=== PATIENT | male | born 1945 | race Caucasian/White ===

== ENCOUNTER → 2017-02-20 10:18 | Outpatient (CLI) | payer MEDICARE, BC, SELFPAY ==
[2017-02-20 12:19] LABS: Alanine Aminotransferase 63 U/L (12-78); Albumin Level 4.4 gm/dL (3.4-5.0); Albumin/Globulin Ratio 1.7 (1.1-1.8); Alkaline Phosphatase 59 U/L (46-116); Anion Gap 9.3 mEq/L (5-15); Aspartate Amino Transferase 32 U/L (15-37); Blood Urea Nitrogen 19 mg/dL (7-18); Calcium 9.4 mg/dL (8.5-10.1); Carbon Dioxide 31 mmol/L (21.0-32.0); Chloride 107 mmol/L (98-107); Chol/HDL Ratio 3.7 (1-3.5); Cholesterol 145 mg/dL (140-200); Creatinine,Serum 1.03 mg/dL (0.70-1.30); Estimated Glomerular Filt Rate 71 ml/min (>60); GFR (African American) 86 ML/MIN (>60); Globulin 2.6 gm/dl (1.3-3.2); Glucose 80 mg/dL (74-106); HDL Cholesterol 39 mg/dL (27-67); LDL Cholesterol 83 mg/dL (0-130); Potassium 4.3 mmoL/L (3.5-5.1); Sodium 143 mmol/L (136-145); Triglycerides 115 mg/dL (30-200); VLDL Cholesterol 23 mg/dL (0-40)
== END ==
PROVIDERS: PCP Internal Medicine Adolescent Medicine; Visit Provider Internal Medicine Adolescent Medicine
DX: M54.41 Lumbago with sciatica, right side (principal); E78.5 Hyperlipidemia, unspecified
CPT/HCPCS: 36415; 80053; 80061

== ENCOUNTER → 2017-02-25 08:16 | Outpatient (CLI) | payer MEDICARE, BC, SELFPAY ==
--- NOTE | 2017-02-25 08:21 | MR_ITS ---
MR lumbar spine wo/w con HISTORY: Low back pain, right-sided back pain and right leg burning ITS.REASON: ACUTE RIGHT SIDED LOW BACK PAIN, W/SCIATICA ORDERING PHYSICIAN: Han Calloway MD PATIENT AGE: 71 years COMPARISON: None TECHNIQUE: Standard multiplanar multiecho sequences are performed without and with gadolinium enhancement . FINDINGS: Transitional segment is present at the lumbosacral junction and is labeled as L5. This was determined based on prior chest and abdomen films. Patient has small 12th ribs. The spinal cord ends at the T12-L1 level T10-T11: Degenerative disc disease. There is moderate facet and ligamentum flavum hypertrophy with bilateral lateral recess and foraminal narrowing. There is canal narrowing at 10 mm. T11-T12: Unremarkable. T12-L1: Degenerative disc disease with bulging disc with mild bilateral foraminal narrowing. The bulging disc does abut the anterior aspect of the cauda equina. L1-L2: Facet and ligamentum hypertrophy with moderate bilateral lateral recess and foraminal narrowing with some transverse narrowing of the canal. L2-L3: Bulging disc with small left paracentral disc protrusion along with facet and ligamentum hypertrophy. There is moderate bilateral foraminal narrowing and lateral recess narrowing. The protruding disc does abut the anterior aspect of the L3 nerve root. L3-L4: Severe facet and ligamentum flavum hypertrophic changes. There is a moderate sized bulging disc along with a small right paracentral disc herniation with superior extrusion of the disc impinging upon the anterior medial aspect of the exiting L3 nerve root. There is severe transverse canal stenosis of 5 mm along with severe bilateral lateral recess and foraminal narrowing. L4-L5: Mild anterolisthesis of L4 approximately 5 mm with bulging disc along with facet and ligamentum flavum hypertrophy with severe bilateral foraminal narrowing with transverse narrowing of the canal is 12 mm. L5-S1: Transitional segment. Unremarkable. No enhancing lesions are evident. There is a lipoma at L2 centrally measuring 1 cm. Multilevel atraumatic 5 are present most prominent at T12-L1. IMPRESSION: 1. Lumbar spondylosis with bulging disc, degenerative disc disease, facet and ligamentum hypertrophy, canal stenosis, and a herniated disc as detailed above. Please see above for detailed description at each level. 2. There is multilevel canal stenosis along with lateral recess and foraminal narrowing. A right paracentral disc herniation is present at L3-L4 with superior extrusion of the disc
== END ==
PROVIDERS: Family Provider Internal Medicine Adolescent Medicine; PCP Internal Medicine Adolescent Medicine; Visit Provider Internal Medicine Adolescent Medicine
DX: M54.31 Sciatica, right side (principal)
CPT/HCPCS: 72158; 76376; A9576

== ENCOUNTER → 2017-03-25 12:28 | Outpatient (CLI) | payer MEDICARE, BC, SELFPAY ==
[2017-03-25 13:05] LABS: Basophils % 0.3 % (0.1-2.0); Eosinophils # 0.1 K/mm3 (0.0-0.4); Eosinophils % 1.6 % (0.1-12.0); Hematocrit 46.9 % (42.0-52.0); Hemoglobin 15.9 g/dL (14.1-18.0); Lymphocytes % 27.5 K/mm3 (10-50); Mean Corpuscular Hemoglobin 28.6 pg (27.0-31.2); Mean Corpuscular Volume 84.3 fl (80-94); Mean Platelet Volume 7.9 fl (7.4-10.4); Monocytes # 0.4 K/mm3 (0.1-1.0); Monocytes % 6.2 % (1.7-9.3); Neutrophils # 4.6 K/mm3 (1.8-7.8); Neutrophils % 64.3 % (37.0-80.0); Platelet Count 180 K/mm3 (142-424); Red Blood Count 5.57 M/mm3 (4.60-6.20); Red Cell Distribution Width 13.1 % (11.5-17.5); White Blood Count 7.1 K/mm3 (4.8-10.8)
[2017-03-25 14:08] LABS: Alanine Aminotransferase 59 U/L (12-78); Albumin Level 3.9 gm/dL (3.4-5.0); Albumin/Globulin Ratio 1.3 (1.1-1.8); Alkaline Phosphatase 66 U/L (46-116); Amylase 57 U/L (25-125); Anion Gap 11.3 mEq/L (5-15); Aspartate Amino Transferase 22 U/L (15-37); Bilirubin,Total 1.1 mg/dL (0.2-1.0); Blood Urea Nitrogen 15 mg/dL (7-18); Calcium 8.8 mg/dL (8.5-10.1); Carbon Dioxide 30 mmol/L (21.0-32.0); Chloride 105 mmol/L (98-107); Chol/HDL Ratio 3.4 (1-3.5); Cholesterol 132 mg/dL (140-200); Creatinine,Serum 1.07 mg/dL (0.70-1.30); Estimated Glomerular Filt Rate 68 ml/min (>60); GFR (African American) 83 ML/MIN (>60); Glucose 103 mg/dL (74-106); HDL Cholesterol 39 mg/dL (27-67); LDL Cholesterol 74 mg/dL (0-130); Lipase 177 u/L (73-393); Potassium 4.3 mmoL/L (3.5-5.1); Sodium 142 mmol/L (136-145); Total Protein,Serum 6.9 gm/dL (6.4-8.2); Triglycerides 94 mg/dL (30-200); VLDL Cholesterol 19 mg/dL (0-40)
== END ==
PROVIDERS: PCP Internal Medicine Adolescent Medicine; Visit Provider Internal Medicine Adolescent Medicine
DX: R10.11 Right upper quadrant pain (principal); R10.13 Epigastric pain
CPT/HCPCS: 36415; 80053; 80061; 82150; 83690; 85025

== ENCOUNTER → 2017-04-03 07:39 | Outpatient (CLI) | payer MEDICARE, BC, SELFPAY ==
--- NOTE | 2017-04-03 08:00 | US_ITS ---
US abdomen limited: HISTORY: ITS.REASON: RUQ PAIN ORDERING PHYSICIAN: Han Calloway MD PATIENT AGE: 71 years COMPARISON: None FINDINGS: PANCREAS: Unremarkable. No obvious mass or abnormal fluid collection. No ductal dilatation LIVER: No focal liver lesions demonstrated. Homogeneous echogenicity. No intrahepatic biliary ductal dilatation evident RIGHT KIDNEY: Unremarkable. Normal size and echogenicity. No hydronephrosis GALLBLADDER: No stones are apparent. On the CT scan however performed on the same day there is a calcific density in the neck of the gallbladder suggesting a small gallstone. This area may be difficult to image by ultrasound. No gallbladder wall thickening, pericholecystic fluid, or biliary dilatation. The gallbladder measures approximately 9 x 2 cm. Common duct is normal at 4 mm. IMPRESSION: 1. Unremarkable right upper quadrant ultrasound. 2. There is a stone suspected in the region of the cystic duct on the CT scan. This is not confirmed on the gallbladder ultrasound and may be due to technical issues in imaging in this area by ultrasound
--- NOTE | 2017-04-03 09:10 | HMH.ITSHM ---
CHOLECALCIFEROL VIT D3 ZOLPIDEN TARTRATE ATENOLOL ATORVASTATIN ASA SILENDAFIL CITRATE
--- NOTE | 2017-04-03 10:45 | CT_ITS ---
CT abdomen pelvis wo/w con CLINICAL INDICATION: Right upper quadrant pain ITS.REASON: ABD PAIN ORDERING PHYSICIAN: Han Calloway MD PATIENT AGE: 71 years COMPARISON: None TECHNIQUE: Axial images obtained without and with contrast with sagittal and coronal reformats. PROCEDURE: Oral Contrast: None IV Contrast: 75 mL's of Isovue-370. FINDINGS: There are minimal atelectatic changes in the right lung base adjacent prominent osteophytes. Coronary artery calcifications are present There is mild diffuse fatty liver. No focal liver lesion is evident. A gallstone or stones are noted in the region of the neck of the gallbladder. No obvious pericholecystic fluid or biliary dilatation. The spleen, pancreas, and adrenal glands are unremarkable. There is a small hiatal hernia. There is a small diverticulum projecting along the medial portion of the descending duodenum. There are nonobstructing bilateral renal calculi measuring up to 5 mm in the upper pole on the right 7 mm in the mid polar region on the left. Small exophytic density projects off the lower pole of left kidney at 13 mm consistent with small cyst. No intestinal obstruction or free air. Unremarkable appendix. There is diverticulosis of the descending and sigmoid colon. No evidence of diverticulitis. No focal inflammatory changes apparent Spondylosis of the lumbar spine. No acute bony anomalies. IMPRESSION: 1. Cholelithiasis. 2. Colonic diverticulosis. No evidence of diverticulitis. 3. Bilateral nonobstructing renal calculi
== END ==
PROVIDERS: Family Provider Internal Medicine Adolescent Medicine; PCP Internal Medicine Adolescent Medicine; Visit Provider Internal Medicine Adolescent Medicine
DX: R10.11 Right upper quadrant pain (principal)
CPT/HCPCS: 74170; 74178; 76705; Q9967

== ENCOUNTER → 2018-01-06 12:50 | Outpatient (POV) | payer MEDICARE, BC, SELFPAY | DX: Z00.00 Encounter for general adult medical examination without abnormal findings (principal) ==

== ENCOUNTER → 2021-05-07 08:46 | Outpatient (CLI) | payer MEDICARE, BC, SELFPAY ==
--- NOTE | 2021-05-07 08:49 | US_ITS ---
FINAL REPORT CLINICAL HISTORY: LEFT LOWER QUADRANT ABD. PAIN FINDINGS: Sonographic images of the abdomen were obtained. The left lower quadrant at the area of pain shows no mass or fluid collection. The liver has increased echogenicity consistent with fatty infiltration. The gallbladder has an unremarkable appearance without evidence of gallstones. There is no evidence of biliary ductal dilatation. The common hepatic duct measures 3 mm, which is within normal limits. Limited images of the pancreas are unremarkable. The spleen size is normal. The right kidney measures 10.4 cm in length. The left kidney measures 11.1 cm in length. There is a 1.2 cm left renal cyst. There is no evidence of hydronephrosis. The aorta has an unremarkable appearance. Limited images of the inferior vena cava are unremarkable. IMPRESSION: Fatty infiltration of the liver. No mass or fluid collection is seen in the area of interest. Reviewed, Interpreted and Dictated by Jacobo Pinzon III, MD Transcribed by Sangeeta Dawson Authenticated by Jacobo Pinzon III, MD on 05/07/2021 11:28:48 AM [facility]
== END ==
PROVIDERS: Visit Provider Internal Medicine Adolescent Medicine
DX: R10.32 Left lower quadrant pain (principal); Z98.890 Other specified postprocedural states
CPT/HCPCS: 76700

== ENCOUNTER → 2021-05-21 07:46 | Outpatient (CLI) | payer MEDICARE, BC, SELFPAY ==
[2021-05-21 09:22] LABS: Blood Urea Nitrogen 19 mg/dl (9-20); Estimated Glomerular Filt Rate 65 ml/min (>60); GFR (African American) 79 ML/MIN (>60)
== END ==
PROVIDERS: Visit Provider Nurse Practitioner Family
DX: R10.31 Right lower quadrant pain (principal)
CPT/HCPCS: 36415; 82565; 84520

== ENCOUNTER → 2021-05-23 08:28 | Outpatient (CLI) | payer MEDICARE, BC, SELFPAY ==
--- NOTE | 2021-05-23 08:36 | CT_ITS ---
FINAL REPORT TECHNIQUE: After the administration of oral and intravenous contrast, axial images were obtained through the abdomen and pelvis by computed tomography. The study was performed with techniques to keep radiation dose as low as reasonably achievable, (ALARA). Individual dose reduction techniques using automated exposure control or adjustment of mA and/or kV according to the patient's size were employed. CLINICAL HISTORY: RIGHT LOWER QUADRANT PAIN. LEFT LOWER QUADRANT PAIN COMPARISON: April 03, 2017 FINDINGS: Abdomen: There is scarring in the medial right lung base. There is mild fatty infiltration of the liver. There are multiple gallstones in the dependent portion of the gallbladder. There is a small periampullary duodenal diverticulum. The spleen, pancreas, adrenals and kidneys appear unremarkable. The aorta is normal in caliber. There is no free fluid or adenopathy. Pelvis: The appendix is not identified. There is a moderate amount of stool in the distal colon and rectum. There are scattered diverticula throughout the descending and sigmoid colon. The urinary bladder is unremarkable. There is no free fluid or adenopathy. IMPRESSION: Fatty infiltration of the liver. Gallstones. Descending and sigmoid colon diverticulosis without evidence of diverticulitis. Reviewed, Interpreted and Dictated by Hamilton Keita MD Transcribed by Lance Theodore Authenticated by Hamilton Keita MD on 05/23/2021 10:30:30 AM [facility]
== END ==
PROVIDERS: Visit Provider Internal Medicine Adolescent Medicine
DX: R10.31 Right lower quadrant pain (principal)
CPT/HCPCS: 74177; Q9967

== ENCOUNTER 2021-06-09 10:25 | Emergency (ER) | payer MEDICARE, BC, SELFPAY ==
[2021-06-09 10:30] VITALS: BP 129/68; PULSE 69; RESP 18; TEMP 37; O2SAT 95; BMI 27.8
--- NOTE | 2021-06-09 11:12 | HMH.EDUTC ---
[facility] [place] Disposition Clinical Impression: Maxillary sinusitis, acute Qualifiers: Recurrence: non-recurrent Qualified Code(s): J01.00 - Acute maxillary sinusitis, unspecified Disposition: Home, Self-Care Condition on Discharge: Good Instructions: DI for Sinusitis Additional Instructions: Start antibiotic patient to take as ordered for a full length of time even if you feel better. Sinus infections do not get better overnight. It may take 2-3 days to notice much improvement so be sure to use conservative measures as discussed for symptoms. Flonase 1 spray each nostril daily to help with nasal congestion, sinus and ear pressure/information Increase fluids Humidifier/vaporizer as needed Tylenol and ibuprofen as needed for fever or pain. If symptoms do not improve or get worse return or be seen in the ER Follow-up with primary care this week Prescriptions: Fluticasone Propionate [Flonase 50mcg nasal spray 16gm] 1 spr NS DAILY 14 Days #9.9 ml Transmission Status: Pending to [facility] Azithromycin [Zithromax 250mg tab] 250 mg PO DIRECTED #6 tab [facility]: [facility] Referrals: Mackenzie Rider APRN [Primary Care Provider] - Time of Disposition: 11:19 Medical Decision Making - Vick Inquiry Pt receiving controlled substance: No Vital Signs: 06/09/21 10:30 Temperature 98.6 F Temperature Source Oral Pulse Rate [Right Brachial] 69 Respiratory Rate 18 Blood Pressure [Right Arm] 129/68 Blood Pressure Mean [Right Arm] 88 Blood Pressure Source [Right Arm] Automatic Cuff Blood Pressure Position [Right Arm] Sitting 02 Sat by Pulse Oximetry 95 Oxygen Delivery Method Room Air [facility] [place] HPI - General Chief complaint: Urgent Treatment Center Stated complaint: congestion Time Seen by Provider: 06/09/21 11:12 Mode of Arrival: Ambulatory Source of Information: Patient Limitations: No Limitations Description of Symptoms (Recalled from Triage Doc. by RN): PATIENT C/O COUGH AND CONGESTION X 2 DAYS HEENT Symptoms (Recalled from RN notes): Yes Resp Symptoms (Recalled from RN notes): Yes Skin Symptoms (Recalled from RN notes): No MS Symptoms (Recalled from RN notes): No Functional Status (Recalled from RN notes): WNL - History of Present Illness Provider Complaint: 76 yr old female presents for coughing, sore throat and congestion and seems to be getting worse instead of better - Related Data Home Medications Medication Instructions Recorded Confirmed atenolol 25 mg tablet 25 mg PO DAILY 09/28/17 06/09/21 atorvastatin 20 mg tablet 20 mg PO DAILY 09/28/17 06/09/21 Trazodone HCl 50 mg PO DAILY 06/09/21 06/09/21 hydroCHLOROthiazide [HCTZ 25mg 25 mg PO DAILY 06/09/21 06/09/21 tab] Previous Rx's Medication Instructions Recorded Azithromycin [Zithromax 250mg 250 mg PO DIRECTED #6 tab 06/09/21 tab] Fluticasone Propionate [Flonase 1 spr NS DAILY 14 Days #9.9 ml 06/09/21 50mcg nasal spray 16gm] Allergies Allergy/AdvReac Type Severity Reaction Status Date / Time No Known Allergies Allergy Verified 10/26/17 13:22 - Worker's Comp Is this a Worker's Comp case?: No [facility] History - Hepatitis A Screen Attestation statement:: This patient has been screened for Hepatitis A risk factors. I have reviewed the patient's past medical history: Yes Medical History: Reports:: Cancer, Hyperlipidemia, Hypertension Denies:: Diabetes Mellitus Type 1, Diabetes Mellitus Type 2, Internal Pacemaker, Lung Disease, Seizures Laterality Cases: Left: Arthroscopy Knee, Bilateral: Tonsillectomy Other Surgeries: Yes: Cardiac Catheterization (stent x1 2009), Colonoscopy. No: Pacemaker - Social History Smoking Status: Never smoker Alcohol Intake: never Substance Use Type: denies use Occupational Status: other Family Hx:: No significant family history ROS Obtained: Yes Systems reviewed as appropriate & no additional complaints - Constitutional Constitutional: R
[2021-06-09 11:25] VITALS: BP 129/68; PULSE 69; RESP 18; TEMP 37; O2SAT 95
[2021-06-09 11:27] LABS: Adenovirus,PCR Not Detected (NotDetected); Bordetella Pertussis Not Detected (NotDetected); Chlamydophila Pneumoniae, PCR Not Detected (NotDetected); Coronavirus 229E Not Detected (NotDetected); Coronavirus NL63 Not Detected (NotDetected); Coronavirus OC43 Not Detected (NotDetected); Coronovirus HKU1,PCR Not Detected (NotDetected); Human Metapneumovirus Not Detected (NotDetected); Influenza A, PCR Not Detected (NotDetected); Influenza AH1, 2009 Not Detected (NotDetected); Influenza AH1, PCR Not Detected (NotDetected); Influenza AH3,PCR Not Detected (NotDetected); Influenza B, PCR Not Detected (NotDetected); Mycoplasma Pneumoniae, PCR Not Detected (NotDetected); Parainfluenza 1, PCR Not Detected (NotDetected); Parainfluenza 2, PCR Not Detected (NotDetected); Parainfluenza 3, PCR Not Detected (NotDetected); Parainfluenza 4, PCR Not Detected (NotDetected); Respiratory Syncytial Virus Not Detected (NotDetected); Rhinovirus/Enterovirus Not Detected (NotDetected)
[2021-06-09 13:59] LABS: Coronavirus 19, PCR Detected (NotDetected)
--- NOTE | 2021-06-09 16:53 | PC.NURSE ---
PATIENT NOTIFIED OF POSITIVE COVID TEST AT THIS TIME
== END 2021-06-09 11:31 | disposition home or self-care (01) ==
PROVIDERS: Emergency Provider Nurse Practitioner Family; PCP Nurse Practitioner Family
DX: J01.00 Acute maxillary sinusitis, unspecified (principal); I10 Essential (primary) hypertension; E78.5 Hyperlipidemia, unspecified
CPT/HCPCS: 87581; 87632; 87798; 96372; 99213; C9803; G0463; U0003; U0005

== ENCOUNTER → 2022-03-28 14:06 | Outpatient (CLI) | payer MEDICARE, BC, SELFPAY ==
--- NOTE | 2022-03-28 14:11 | XR_ITS ---
FINAL REPORT CLINICAL HISTORY: MEDIAL SIDED knee pain COMPARISON: none FINDINGS: Three views of the left knee were obtained. There is no prior exam for comparison. There is no acute osseous abnormality of the left knee. There is degenerative joint disease with chondrocalcinosis. There is a small joint effusion. Soft tissues are otherwise without acute abnormality. IMPRESSION: Degenerative changes and small joint effusion with no acute osseous abnormality of the left knee. Reviewed, Interpreted and Dictated by Hayley Ruff MD Transcribed by Kindra Barros Authenticated and [facility]
== END ==
PROVIDERS: PCP Nurse Practitioner Family; Visit Provider Orthopaedic Surgery
DX: M25.562 Pain in left knee (principal)
CPT/HCPCS: 73562

== ENCOUNTER → 2022-04-21 15:36 | Outpatient (CLI) | payer MEDICARE, BC, SELFPAY ==
--- NOTE | 2022-04-21 15:42 | XR_ITS ---
FINAL REPORT CLINICAL HISTORY: RT ANTERIOR SHOULDER PAIN FINDINGS: 3 views of the right shoulder were obtained. There is no acute fracture or dislocation. There are mild degenerative changes of the acromioclavicular and glenohumeral joints. There are small calcifications adjacent to the greater tuberosity that may represent calcific tendinitis. IMPRESSION: Mild degenerative change. Reviewed, Interpreted and Dictated by Jacobo Pinzon III, MD Transcribed by Lance Theodore Authenticated and [facility]
== END ==
PROVIDERS: PCP Nurse Practitioner Family; Visit Provider Nurse Practitioner Family
DX: M25.511 Pain in right shoulder (principal)
CPT/HCPCS: 73030

== ENCOUNTER 2023-06-04 09:17 | Outpatient (CLI) | payer MEDICARE, BC, SELFPAY ==
--- NOTE | 2023-06-04 09:21 | XR_ITS ---
FINAL REPORT TECHNIQUE: 3 views CLINICAL HISTORY: ACUTE RIGHT SIDED THORACIC BACK PAIN COMPARISON: None FINDINGS: There is no fracture present. There is no malalignment. There are mild anterior osteophyte formations of the lower thoracic spine. IMPRESSION: No acute process. Reviewed, Interpreted and Dictated by Hamilton Keita MD Transcribed by JEMIMA Vo Authenticated and [facility]
== END 2023-06-04 23:59 | disposition home or self-care (01) ==
LOC: RAD 09:19
PROVIDERS: PCP Nurse Practitioner Family; Visit Provider Nurse Practitioner Family
DX: M54.6 Pain in thoracic spine (principal)
CPT/HCPCS: 72072

== ENCOUNTER 2023-06-09 06:33 | Outpatient (CLI) | payer MEDICARE, BC, SELFPAY ==
--- NOTE | 2023-06-09 06:47 | CT_ITS ---
FINAL REPORT TECHNIQUE: Axial images through the abdomen and pelvis was performed by computed tomography. This study was performed with techniques to keep radiation doses as low as reasonably achievable (ALARA). Individualized dose reduction techniques using automated exposure control or adjustment of mA and/or kV according to the patient's size were employed. CLINICAL HISTORY: ELEVATED BILIRUBIN, DE LA PAZ, RT FLANK PAIN COMPARISON: 05/23/2021 FINDINGS: Abdomen: Lung bases are clear. Liver, spleen, pancreas and adrenal glands have a normal CT appearance in their limited unenhanced state. There is minimal cholelithiasis without acute gallbladder disease. There is no biliary obstruction. There is mild right renal scarring, stable. The kidneys show no stone disease or obstruction. No obvious renal mass is present. No ureteral stones are present. Pelvis: There is no evidence of appendicitis. There is mild sigmoid diverticulosis. The prostate is not visualized. There is tiny right inguinal hernia. No distal ureteral stones are seen. Bladder is unremarkable. No fluid collection or adenopathy is seen. IMPRESSION: No acute findings or significant change. Reviewed, Interpreted and Dictated by Kathe Mcallister MD Transcribed by Dee Dee Stuart Authenticated and [facility]
== END 2023-06-09 23:59 | disposition home or self-care (01) ==
LOC: RAD 06:34
PROVIDERS: PCP Nurse Practitioner Family; Visit Provider Nurse Practitioner Family
DX: R10.9 Unspecified abdominal pain (principal); K75.81 Nonalcoholic steatohepatitis (NASH)
CPT/HCPCS: 74176

== ENCOUNTER 2024-12-28 09:30 | Outpatient (CLI) | payer MEDICARE, BC, SELFPAY ==
--- NOTE | 2024-12-28 09:36 | XR_ITS ---
FINAL REPORT CLINICAL HISTORY: ACUTE RT-SIDE THORACIC BACK PAIN FINDINGS: AP, lateral, and swimmer''s views of the thoracic spine were obtained. There are multilevel flowing anterior osteophytes which could be related to DISH. There is mild degenerative disc disease. There is no acute fracture or malalignment. Vertebral body height is preserved. Paraspinal soft tissues are within normal limits. IMPRESSION: No acute osseous abnormality of the thoracic spine. Reviewed, Interpreted and Dictated by Hayley Ruff MD Transcribed by Juju Lambert Authenticated and [facility]
--- OUTSIDE RECORDS SUMMARY | 2024-12-28 10:38 | XMS_ITS | Referral Summary ---
Author Organization [employer] ([place], [place], [place], [place], [place]) Address [address] [place] [address] Care Team Providers Care Car Spotter Name Role Phone Unavailable Primary Care Provider Unavailabl e Allergies No known active allergies Medications traZODone (DESYREL) 50 MG tablet Take 1 tablet every day by oral route. 10/07/2023 Active hydroCHLOROthia zide (MICROZIDE) 12.5 mg capsule Take 1 capsule every day by oral route. Active cholecalciferol (VITAMIN D3) 1,250 mcg (50,000 unit) capsule Take 1,000 Units by mouth daily. Active atorvastatin (LIPITOR) 20 MG tablet Take 1 tablet every day by oral route. Active atenoloL (TENORMIN) 25 MG tablet Take 0.5 tablets (12.5 mg total) by mouth. 10/07/2023 Active aspirin 81 MG EC tablet Take 1 tablet (81 mg total) by mouth daily. Active Active Problems No known active problems Social History Tobacco Use Types Packs/Day Years Used Date Smoking Tobacco: Never Smokeless Tobacco: Never Tobacco Cessation:Counseling Given: Not Answered Alcohol Use Standard Drinks/Week Comments Never 0 (1 standard drink = 0.6 oz pur e alcohol) Sex and Gender Information Value Date Recorded Sex Assigned at Not on file Legal Sex Male 3:12 PM CDT Gender Identity Not on file Sexual Orientation Not on file Last Filed Vital Signs Vital Sign Reading Time Taken Comments Blood Pressure 148/77 07/28/2024 9:06 AM EDT Pulse 55 07/28/2024 9:06 AM EDT Temperature - - Respiratory Rate - - Oxygen Saturation - - Inhaled Oxygen Concentration - - Weight 97.5 kg (215 lb) 07/28/2024 8:59 AM EDT Height 180.3 cm (5' 11 ) 07/28/2024 8:59 AM EDT Body Mass Index 29.99 07/28/2024 8:59 AM EDT Plan of Treatment Not on file Insurance MEDICARE PART A B
--- OUTSIDE RECORDS SUMMARY | 2024-12-28 10:38 | XMS_ITS | Clinical Summary ---
Author Organization [employer] ([place], [place], [place], [place], [place]) Address [address] [place] [address] Care Team Providers Care Pararescue Craftsman Name Role Phone Unavailable Primary Care Provider [...] Active Active Problems No known active problems Family History Medical History Relation Name Comments Arthritis Other Heart disease Other High blood pressure Other Relation Name Status Comments Other Social History Tobacco Use Types Packs/Day Years [...] 07/28/2024 8:59 AM EDT Plan of Treatment Health Maintenance Due Date Last Done Comments Depression Screening (12+) 1958 Hepatitis C Screening 1964 Pneumococcal 50+ years (1 of 1 - PCV) 1996 Shingles Vaccine (Zoster) (1 of 2) 1996 Medicare Initial AWV [id number] 05/11/2012 Respiratory Syncytial Virus (RSV) Adult or (1 - 1-dose 75+ series) 2021 Falls Risk Screening 02/10/2024 COVID-19 VACCINE ( - 2024- season) 2024 10/31/2020, 03/18/2020, 02/26/2020 Influenza Vaccine (#1) 2024 DTAP/TDAP/TD VACCINES (4 - T d or Tdap) 02/19/2025 02/19/2015, 04/08/2012, 04/12/1996 Tobacco Cessation Counseling and Screening (12+) 07/28/2025 07/28/2024 Insurance MEDICARE PART A B
--- OUTSIDE RECORDS SUMMARY | 2024-12-28 10:38 | XMS_ITS | Clinical Summary ---
Author Organization [facility] Address [address] [place] [address] Care Team Providers Care Model And Pattern Supervisor Name Role Phone AdryMackenzie mayen Octavia CADENCE Primary Care Provid er Allergies No known active allergies Medications atorvastatin (LIPITOR) 20 MG tablet Take 40 mg by mouth Daily. Active tadalafil (CIALIS) 20 MG tablet Take 20 mg by mouth Daily As Needed for erectile dysfunction. Active aspirin 81 MG EC tablet Take 81 mg by mouth Daily. Active cholecalciferol (VITAMIN D3) 28216 units capsule Take 1,000 Units by mouth Daily. Active atenolol (TENORMIN) 12.5 MG half tablet Take 6.25 mg by mouth Daily. Active docusate sodium (COLACE) 100 MG capsule Take 1 capsule by mouth 2 (Two) Times a Day As Needed for Constipation. 30 capsule 8 Active ondansetron (ZOFRAN) 4 MG tablet Take 1 tablet by mouth Every 6 (Six) Hours As Needed for Nausea or Vomiting. 8 tablet 8 Active TRAZODONE HCL PO Take 50 mg by mouth Every Evening. Active hydroCHLOROthiazi de (MICROZIDE) 12.5 MG capsule Take 12.5 mg by mouth Daily. Active Multiple Vitamins-Minerals (MULTIVITAMIN ADULT PO) Take 1 tablet by mouth Daily. Active HYDROcodone-aceta minophen (NORCO) 5-325 MG per tabletIndications :Lumbar stenosis with neurogenic claudication Take 1 tablet by mouth Every 6 (Six) Hours As Needed for Moderate Pain . 12 tablet 9 Active Active Problems Problem Noted Date Diagnosed Date Elevated hemoglobin A1c 04/20/2017 Lumbar stenosis with neurogenic claudication Overview (04/08/2017): Added automatically from request for surgery [id number] Family History Medical History Relation Name Comments Heart disease Mother Relation Name Status Comments Mother Social History Tobacco Use Types Packs/Day Years Used Date Smoking Tobacco: Never Smokeless Tobacco: Never Alcohol Use Standard Drinks/Week Comments No 0 (1 standard drink = 0.6 oz pur e alcohol) Abuse Screen Answer Date Recorded Unsafe at Home or Work/School Not on file Feels Threatened by Someone? Not on file 10/2022 Does Anyone Keep You from Co ntacting Others or Doint Things Outside the Home? Not on file 11/17/2022 Physical Sign of Abuse Present Not on file 1 Housing Stability Answer Date Recorded Current Living Arrangements Not on file 10/2022 Potentially Unsafe Housing Conditions Not on galileo e 11/17/2022 Family and Community Support Answer Axel e Recorded Help with Day-to-Day Activities Not on file 11/17/2022 Lonely or Isolated Not on file 11/17/2022 Employment Answer Date Recorded Do you want help finding or keeping work or a shanta b? Not on file 11/17/2022 Disabilities Answer Date Recorded Concentrating, Remembering, or Making Decisions Difficulty Not on file 11/17/2022 Doing Errands Independently Difficulty Not on fi le 11/17/2022 Education Answer Date Recorded Help with school or training? Not on file Preferred Language Not on file 11/17/2022 Sex and Gender Information Value Date Recorded Sex Assigned at Not on file Legal Sex Male 1:28 PM EDT Gender Identity Not on file Sexual Orientation Not on file Last Filed Vital Signs Vital Sign Reading Time Taken Comments Blood Pressure 125/76 12/08/2018 8:45 AM EDT Pulse 46 12/08/2018 8:45 AM EDT Temperature 36.6 C (97.8 F) 12/08/2018 8:02 AM EDT Respiratory Rate 18 12/08/2018 8:45 AM EDT Oxygen Saturation 98% 12/08/2018 8:45 AM EDT Inhaled Oxygen Concentration - - Weight 97.5 kg (215 lb) 12/08/2018 6:49 AM EDT Height 180.3 cm (5' 11 ) 12/08/2018 6:49 AM EDT Body Mass Index 29.99 12/08/2018 6:49 AM EDT Plan of Treatment Health Maintenance Due Date Last Done Comments TDAP/TD VACCINES (1 - Tdap) 1965 COLOGUARD 05/24/1991 COLON CANCER SCREENING 5 YEAR SIGMOIDOSCOPY 05/24/1991 COLONOSCOPY 05/24/1991 CT COLONOGRAPHY 05/24/1991 FIT Testing (1 year) 05/24/1991 Pneumococcal Vaccine 50+ (1 of 1 - PCV) 1996 ZOSTER VACCINE (1 of 2) 1996 ANNUAL PHYSICAL 03/12/2017 HEPATITIS C SCREENING 03/12/2017 COLORECTAL CANCER SCREENING 09/21/2018 FECAL OCCULT BLOOD TEST 09/21/2018 09/21/2017 RSV Vaccine - Adults (1 - 1-dose 75+ series) 2 INFLUENZA VACCINE 09/09/2024 COVID-19 Vaccine ( - season) 2024 Medical Devices Implanted Type 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 Device Identifier Shelf Expiration Date Model / Serial / Lot Duralmatrix Duragen Pls 2x2in 5pk - [id number] Implanted:Qty: 1 on 04/16/2017 by Mlavin Perdomo MD at [facility] Implant Right: Spine Lumbar [employer] 06/09/2019 [id number] / / [id number] Sealant Fibrin Tisseel Fz 4ml - [id number] - [id number] Implanted:Qty: 1 on 04/16/2017 by Malvin Perdomo MD at [facility] Implant Right: Spine Lumbar [facility] 11/08/2018 [id number] / [id number] / [id number] Stent Percuflx No Gw 4.8x26 - [id number] Implanted:Qty: 1 on 12/08/2018 by Wesley Montana MD at [facility] Stent Right: Ureter [employer] 08/18/2021 [id number] / / [id number] Procedures Procedure Name Priority Date/Time Associated Diagnosis Comments POCT OCCULT BLOOD STOOL STAT 09/21/2017 7:00 PM EDT from Last 3 Months or Most Recently Relevant to Health Maintenance Results * (ABNORMAL) POCT Occult Blood, stool (09/21/2017 7:00 PM EDT) Fecal Occult Blood Positive(A) Negative [facility] Lot Number [id number] [facility] Expiration Date 01/26 [facility] DEVELOPER LOT NUMBER [id number] [facility] DEVELOPER EXPIRATION DATE 08/29 [facility] Positive Control Positive Positive [facility] Negative Control Negative Negative [facility] Stool Specimen from rectum / Unknown 09/21/2017 7:00 PM EDT us Inderjit Pope MD POINT OF CARE TEST ORDERABLES Final Result [facility]
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
--- OUTSIDE RECORDS SUMMARY | 2024-12-28 10:39 | XMS_ITS | Data Portability ---
Author Organization [facility] JEET [place] [facility] Address [address] [place] [address] Care Team Providers Care Resistance Brazer Name Role Phone JER VALIENTE Primary Care Provider VIKY SAWYER Primary Care Provider Assessment Encounter Date Assessment Date Assessment LastModified by Organization Details LastModified Time 12/08/2019 12/08/2019 K Not available 11/11 16:17:55 07/23/2021 07/23/2021 K Not available 07/10 13:42:03 Plan of Treatment Reminders Order Date Submit Date Provider Last Modified By Organization Details Last Modified Time Details Appointments None recorded. Lab urinalysis panel, auto 2021 022 [facility] [address], [address] [facility], [place], [address], 16:31:30 PSA, serum or plasma 2019 020 [email or web address] [facility], [address] [facility], [place], [address], 0 10:06:33 urinalysis panel, auto 2019 020 [email or web address] [facility] [address], [address] [facility], [place], [address], 0 10:06:33 urinalysis, dipstick, auto 2018 019 [facility], [address] [facility], [place], [address], 9 08:51:50 kidney stone analysis 2018 019 [facility], [address] [place], [address], 9 17:00:45 urinalysis, dipstick, auto 2018 019 [facility], [address] [facility], [place], [address], 9 13:43:31 Referral None recorded. Procedures None recorded. Surgeries None recorded. Imaging XR, abdomen, 1 view 2019 020 [facility], [address] [facility], [place], [address], 0 11:59:44 Medication Orders baclofen 10 mg tablet 2021 022 [email or web address] [facility] 591, [address], [address], 2 16:24:00 Patient TargetsNo targets recorded. Patient Instructions Encounter Date Encounter Id Patient Instructions Last Modified By Organization Details Last Modified Time 11/30/2018 [id number] back care and preventing injuries: care instructions Not available 11/30/2018 13:43:31 getting back to normal after low back pain: care instructions Not available 11/30/2018 13:43:31 learning about relief for back pain Not available 11/30/2018 13:43:31 01/11/2019 [id number] Increase volume of intake and decrease salt intake. Not available 01/13/2019 08:51:26 HIs last 24 hour collection was just a year ago 01/26 and had low volume and high sodium. Not available 01/13/2019 08:51:10 12/08/2019 [id number] back care and preventing injuries: care instructions Not available 12/09/2019 16:19:52 getting back to normal after low back pain: care instructions Not available 12/09/2019 16:19:52 learning about relief for back pain Not available 12/09/2019 16:19:52 Reason for Referral None Reported. Results Created Date Observation Date Name Description Value Unit Range Abnormal Flag Note LastModifiedBy Organization Detail LastModifiedTime 12/08/1912/08/2019 urina lysis panel , auto Unknown Analyte Clean Catch Not Available [facility] [address] [facility], [place], [address], 12/08/2019 09:14:07 12/08/1912/08/2019 urina lysis panel , auto Unknown Analyte Yellow Not Available [facility] [address] [place] [address], [address], 12/08/2019 09:14:07 12/08/1912/08/2019 urina lysis panel , auto Unknown Analyte Clear Not Available [facility] [address], [address], 12/08/2019 09:14:07 12/08/1912/08/2019 urina lysis panel , auto Unknown Analyte 1.010 Not Available [facility] [address] [place], [address], 12/08/2019 09:14:07 12/08/1912/08/2019 urina lysis panel , auto Unknown Analyte 6.0 Not Available [facility] [address] [place], [address], 12/08/2019 09:14:07 12/08/1912/08/2019 urina lysis panel , auto Unknown Analyte Negati ve Not Available [facility] [address], [place], [address], 12/08/2019 09:14:07 12/08/1912/08/2019 urina lysis panel , auto Unknown Analyte Negati ve Not Available [facility] [address] [facility], [place], [address], 12/08/2019 09:14:07 12/08/1912/08/2019 urina lysis panel , auto Unknown Analyte Negati ve Not Available [facility] [address] [facility], [place], [address], 12/08/2019 09:14:07 12/08/1912/08/2019 urina lysis panel , auto Unknown Analyte Normal Not Available [facility] [address] [facility], [place], [address], 12/08/2019 09:14:07 12/08/1912/08/2019 urina lysis panel , auto Unknown Analyte Negati ve Not Available [facility] [address] [facility], [place], [address], 12/08/2019 09:14:07 12/08/1912/08/2019 urina lysis panel , auto Unknown Analyte Normal Not Available [facility] [address] [facility], [place], [address], 12/08/2019 09:14:07 12/08/1912/08/2019 urina lysis panel , auto Unknown Analyte Negati ve Not Available [facility] [address] [facility], [place], [address], 12/08/2019 09:14:07 12/08/19 20 12/08/2019 urina lysis panel , auto Unknown Analyte Negati ve Not Available [facility] [address] [facility], [place], [address], 12/08/2019 09:14:07 01/12/20 19 01/11/2019 urina lysis , dipst ick, auto Unknown Analyte Yellow Not Available [facility] [address] [facility], [place], [address], 01/11/2019 09:14:59 01/12/2001/11/2019 urina lysis , dipst ick, auto Unknown Analyte Clear Not Available [facility] [address] [facility], [place], [address], 01/11/2019 09:14:59 01/12/2001/11/2019 urina lysis , dipst ick, auto Unknown Analyte 1.020 Not Available [facility] [address] [facility], [place], [address], 01/11/2019 09:14:59 01/12/2001/11/2019 urina lysis , dipst ick, auto Unknown Analyte 5.0 Not Available [facility] [address] [facility], [place], [address], 01/11/2019 09:14:59 01/12/20 19 01/11/2019 urina lysis , dipst ick, auto Unknown Analyte Negati ve Not Available [facility] [address] [facility], [place], [address], 01/11/2019 09:14:59 01/12/2001/11/2019 urina lysis , dipst ick, auto Unknown Analyte Negati ve Not Available [facility] [address] [facility], [place], [address], 01/11/2019 09:14:59 01/12/2001/11/2019 urina lysis , dipst ick, auto Unknown Analyte Negtiv e Not Available [facility] [address], [place], [address], 01/11/2019 09:14:59 01/12/2001/11/2019 urina lysis , dipst ick, auto Unknown Analyte 50 mg/dl Not Available [facility] [address] [facility], [place], [address], 01/11/2019 09:14:59 01/12/2001/11/2019 urina lysis , dipst ick, auto Unknown Analyte Negati ve Not Available [facility] [address] [facility], [place], [address], 01/11/2019 09:14:59 01/12/2001/11/2019 urina lysis , dipst ick, auto Unknown Analyte Normal Not Available [facility] [address] [facility], [place], [address], 01/11/2019 09:14:59 01/12/2001/11/2019 urina lysis , dipst ick, auto Unknown Analyte Negati ve Not Available [facility] [address] [facility], [place], [address], 01/11/2019 09:14:59 01/12/2001/11/2019 urina lysis , dipst ick, auto Unknown Analyte Negati ve Not Available [facility] [address] [facility], [place], [address], 01/11/2019 09:14:59 01/12/2001/11/2019 urina lysis , dipst ick, auto Unknown Analyte Clean Catch Not Available [facility] [address] [facility], [place], [address], 01/11/2019 09:14:59 01/12/2001/11/2019 urina lysis , dipst ick, auto Unknown Analyte Automa nikole Not Available [facility] [address] [place], [address], 01/11/2019 09:14:59 12/01/1911/30/2018 urina lysis , dipst ick, auto Unknown Analyte Yellow Not Available [facility] [address] [place], [address], 11/30/2018 11:25:09 12/01/1911/30/2018 urina lysis , dipst ick, auto Unknown Analyte Clear Not Available [facility] [address] [place], [address], 11/30/2018 11:25:09 12/01/1911/30/2018 urina lysis , dipst ick, auto Unknown Analyte 1.010 Not Available [facility] [address] [place], [address], 11/30/2018 11:25:09 12/01/1911/30/2018 urina lysis , dipst ick, auto Unknown Analyte 6.0 Not Available [facility] [address] [place], [address], 11/30/2018 11:25:09 12/01/1911/30/2018 urina lysis , dipst ick, auto Unknown Analyte Negati ve Not Available [facility] [address] [place], [address], 11/30/2018 11:25:09 12/01/1911/30/2018 urina lysis , dipst ick, auto Unknown Analyte Negati ve Not Available [facility] [address] [place], [address], 11/30/2018 11:25:09 12/01/19 19 11/30/2018 urina lysis , dipst ick, auto Unknown Analyte Negtiv e Not Available [facility] [address] [facility], [place], [address], 11/30/2018 11:25:09 12/01/1911/30/2018 urina lysis , dipst ick, auto Unknown Analyte Normal Not Available [facility] [address] [facility], [place], [address], 11/30/2018 11:25:09 12/01/1911/30/2018 urina lysis , dipst ick, auto Unknown Analyte Negati ve Not Available [facility] [address] [facility], [place], [address], 11/30/2018 11:25:09 12/01/1911/30/2018 urina lysis , dipst ick, auto Unknown Analyte Normal Not Available [facility] [address] [facility], [place], [address], 11/30/2018 11:25:09 12/01/19 19 11/30/2018 urina lysis , dipst ick, auto Unknown Analyte Negati ve Not Available [facility] [address] [facility], [place], [address], 11/30/2018 11:25:09 12/01/1911/30/2018 urina lysis , dipst ick, auto Unknown Analyte Negati ve Not Available [facility] [address] [place], [address], 11/30/2018 11:25:09 12/01/19 19 11/30/2018 urina lysis , dipst ick, auto Unknown Analyte Clean Catch Not Available [facility] [address] [place], [address], 11/30/2018 11:25:09 12/01/19 19 11/30/2018 urina lysis , dipst ick, auto Unknown Analyte Automa nikole Not Available [facility] [address] [facility], [place], [address], 11/30/2018 11:25:09 12/11/19 19 12/14/2018 kidne y stone cassie sis nidus Not Observ ed normal See Note 1 Not Available [facility] [address] [place] [address], [address], 12/14/2018 17:00:45 12/11/19 19 12/14/2018 kidne y stone cassie sis composition SEE BELOW normal Calci um Oxala te Dihyd rate (Wedd ellit e) 20% Calci um Oxala te Monoh ydrat e (Whew ellit e) 80% See Note 1 Not Available [facility] [address] [place] [address], [address], 12/14/2018 17:00:45 12/11/19 19 12/14/2018 kidne y stone cassie sis weight 0.089 g normal Note 1 This test was devel oped and its cassie tical perfo rmanc e leonid cteri stics have been deter mined by [facility]. It has not been clear ed or appro jeremias by the FDA. This assay has been valid ated pursu ant to the CLIA regul ation s and is used for clini fabiana purpo ses. TEST PERFO RMED AT: [facility] [address] [facility] [place] [address] Sridhar JENNINGS,PHD Not Available [facility] [address] [place] [address], [address], 12/14/2018 17:00:45 12/08/19 20 12/08/2019 PSA, serum or plasm a PSA <0.04 NG/mL 0.0 - 4.0 Not Available [facility] [address] [facility], [place], [address], 12/08/2019 10:05:59 07/24/19 22 07/23/2021 urina lysis panel , auto Unknown Analyte Clean Catch Not Available [facility] [address] [facility], [place], [address], 07/23/2021 13:42:05 07/24/19 22 07/23/2021 urina lysis panel , auto Unknown Analyte Straw Not Available [facility] [address] [facility], [place], [address], 07/23/2021 13:42:05 07/24/19 22 07/23/2021 urina lysis panel , auto Unknown Analyte Clear Not Available [facility] [address] [facility], [place], [address], 07/23/2021 13:42:05 07/24/19 22 07/23/2021 urina lysis panel , auto Unknown Analyte 1.020 Not Available [facility] [address] [facility], [place], [address], 07/23/2021 13:42:05 07/24/19 22 07/23/2021 urina lysis panel , auto Unknown Analyte 5.0 Not Available [facility] [address] [facility], [place], [address], 07/23/2021 13:42:05 07/24/19 22 07/23/2021 urina lysis panel , auto Unknown Analyte Negati ve Not Available [facility] [address] [facility], [place], [address], 07/23/2021 13:42:05 07/24/19 22 07/23/2021 urina lysis panel , auto Unknown Analyte Negati ve Not Available [facility] [address] [facility], [place], [address], 07/23/2021 13:42:05 07/24/19 22 07/23/2021 urina lysis panel , auto Unknown Analyte Negati ve Not Available [facility] [address] [facility], [place], [address], 07/23/2021 13:42:05 07/24/19 22 07/23/2021 urina lysis panel , auto Unknown Analyte Normal Not Available [facility] [address] [facility], [place], [address], 07/23/2021 13:42:05 07/24/19 22 07/23/2021 urina lysis panel , auto Unknown Analyte Negati ve Not Available [facility] [address] [facility], [place], [address], 07/23/2021 13:42:05 07/24/19 22 07/23/2021 urina lysis panel , auto Unknown Analyte Normal Not Available [facility] [address] [facility], [place], [address], 07/23/2021 13:42:05 07/24/19 22 07/23/2021 urina lysis panel , auto Unknown Analyte Negati ve Not Available [facility] [address] [facility], [place], [address], 07/23/2021 13:42:05 07/24/19 22 07/23/2021 urina lysis panel , auto Unknown Analyte Negati ve Not Available [facility] [address] [facility], [place], [address], 07/23/2021 13:42:05 12/01/19 19 11/30/2018 CT, abdom en + pelvi s, w/o contr ast [facility] [address] [facility] [place] [address] Patien t Name: JOSELITO Martino Patielina t : 947 Patien t 4 Orderi ng Provid er: GAYLE PENNINGTON EXAM DATE: 2018 EXAM: CT R/O KIDNEY STONES (A/P W/O) CLINIC AL INFORM ATION: Right flank pain. TECHNI QUE: Multip le axial CT images of the abdome n and pelvis were obtain ed withou t inject ion of IV contra st using the urinar y stone protoc ol. COMPAR OSVALDO: None. FINDIN GS ON CT ABDOME N: LOWER THORAX : Lung bases are clear. Pritchard ry artery calcif icatio ns are noted. URINAR Y TRACT: No stones are seen in the left kidney . There is right hydron ephros is and hydrou reter due to the presen ce of a partia lly extrud ed impact ed stone in the right UVJ measur ing 6 mm in diamet er and 1000 Hounsf ield units in attenu ation. There is a 1.5 cm diamet er simple cyst left kidney . OTHER UPPER ABDOMI NAL ORGANS : Liver, gallbl adder, spleen , pancre as, and adrena ls are normal within the limits on interp retati on impose d by the absenc e of IV contra st. BOWEL AND MESENT KEELEY: Stomac h, small bowel and colon are normal . No mesent thiago lympha denopa thy or perito khushi free fluid. RETROP ERITON EUM:Li mited evalua tion due to absenc e of IV contra st. Aorta shows athero sclero tic calcif icatio ns with normal aortic calibe r. IVC and branch es are normal . No retrop eriton eal lympha denopa thy. BODY WALL AND MUSCUL OSKELE STACY STRUCT URES: Degene rative change s of the lumbar spine are noted. Anteri or abdomi nal wall is normal . FINDIN GS ON CT PELVIS : PELVIC CAVITY : Urinar y bladde r and rectos igmoid are normal . Prosta te gland is surgic ally absent . Multip le phlebo liths are seen in the pelvis . No pelvic or inguin al lympha denopa thy, mass or fluid. MUSCUL OSKELE STACY STRUCT URES: Normal . COMBIN ED IMPRES CHIO: 1. Partia lly extrud ed impact ed stone in the right UVJ causin g right hydron ephros is and hydrou reter. 2. Simple cyst left kidney . Interp reted By: Janette Chapa MD Electr onical ly Signed By: Janette Chapa MD on 2018 4:40 PM [facility] [address] [place], [address], 12/02/2018 08:22:06 12/09/19 19 12/08/2018 fluor oscop y (PROC ) No observ ation record ed. [email or web address] [facility] [address], [place], [address], 12/14/2018 09:12:50 12/08/19 20 12/08/2019 XR, abdom en, 1 view [facility] [address] [place] [address] Patien t Name: JOSELITO REYES N Patielina t : 947 Patien t 4 Orderi ng Provid er: GAYLE PENNINGTON EXAM DATE: 2019 EXAM: XR CU ABDOME N KUB CLINIC AL INFORM ATION: Histor y of urinar y tract stones . IMAGES PROVID ED: KUB AP radiog raphic images of the abdome n. COMPAR OSVALDO: None. FINDIN GS AND IMPRES CHIO: No stones or calcif icatio ns are seen in the expect ed locati on of the kidney s, ureter s or urinar y bladde r. Phlebo liths are seen in the pelvis . Previo us doni ctomy is seen at L3 and L4 levels . Interp reted By: Janette Chapa MD Electr onical ly Signed By: Janette Chapa MD on 2019 11:54 AM [facility] [employer] [address] [place], [address], 12/08/2019 12:14:05 07/24/19 22 07/23/2021 XR, abdom en, [address] [address] Patielina t Name: JOSELITO brian : 947 Patielina t 4 Orderi ng Provid er: GAYLE PENNINGTON EXAM DATE: 2021 EXAM: XR ABDOME N KUB CLINIC AL INFORM ATION: Histor y of urinar y tract stones . IMAGES PROVID ED: KUB AP radiog raphic images of the abdome n. COMPAR OSVALDO: None. FINDIN GS AND IMPRES CHIO: No stones or calcif icatio ns are seen in the expect ed locati on of the kidney s, ureter s or urinar y bladde r. No other signif icant abnorm ality. Interp reted By: Janette Chapa MD Electr onical ly Signed By: Janette Chapa MD on 022 5:03 PM [facility] [address], [address], 07/29/2021 16:51:43 Result Notes Documentation Provider Name and Address Organization Details Recorded Time Ct, Abdomen + Pelvis, W/o Contrast : [address] [address] Patient Name: JOSELITO MILLER Patient : 1945 Patient Ordering Provider: ARELY PENNINGTON EXAM DATE: 11/30/2018 EXAM: CT R/O KIDNEY STONES (A/P W/O) CLINICAL INFORMATION: Right flank pain. TECHNIQUE: Multiple axial CT images of the abdomen and pelvis were obtained without injection of IV contrast using the urinary stone protocol. COMPARISON: None. FINDINGS ON CT ABDOMEN: LOWER THORAX: Lung bases are clear. Coronary artery calcifications are noted. URINARY TRACT: No stones are seen in the left kidney. There is right hydronephrosis and hydroureter due to the presence of a partially extruded impacted stone in the right UVJ measuring 6 mm in diameter and 1000 Hounsfield units in attenuation. There is a 1.5 cm diameter simple cyst left kidney. OTHER UPPER ABDOMINAL ORGANS: Liver, gallbladder, spleen, pancreas, and adrenals are normal within the limits on interpretation imposed by the absence of IV contrast. BOWEL AND MESENTERY: Stomach, small bowel and colon are normal. No mesenteric lymphadenopathy or peritoneal free fluid. RETROPERITONEUM:Limited evaluation due to absence of IV contrast. Aorta shows atherosclerotic calcifications with normal aortic caliber. IVC and branches are normal. No retroperitoneal lymphadenopathy. BODY WALL AND MUSCULOSKELETAL STRUCTURES: Degenerative changes of the lumbar spine are noted. Anterior abdominal wall is normal. FINDINGS ON CT PELVIS: PELVIC CAVITY: Urinary bladder and rectosigmoid are normal. Prostate gland is surgically absent. Multiple phleboliths are seen in the pelvis. No pelvic or inguinal lymphadenopathy, mass or fluid. MUSCULOSKELETAL STRUCTURES: Normal. COMBINED IMPRESSION: 1. Partially extruded impacted stone in the right UVJ causing right hydronephrosis and hydroureter. 2. Simple cyst left kidney. Interpreted By: Tyrell Chapa MD Y PENNINGTON MD [address] [place], [place] [address] [place] [address] 12/02/2018 08:22:06 Xr, Abdomen, 1 View : [facility] [address] [place] [address] Patient Name: JOSELITO MILLER Patient : 1945 Patient Ordering Provider: ARELY PENNINGTON EXAM DATE: 12/08/2019 EXAM: XR CU ABDOMEN KUB CLINICAL INFORMATION: History of urinary tract stones. IMAGES PROVIDED: KUB AP radiographic images of the abdomen. COMPARISON: None. FINDINGS AND IMPRESSION: No stones or calcifications are seen in the expected location of the kidneys, ureters or urinary bladder. Phleboliths are seen in the pelvis. Previous laminectomy is seen at L3 and L4 levels. Interpreted By: Tyrell Chapa MD Brianna gil, [facility] 12/08/2019 12:14:05 Xr, Abdomen, 1 View : [place] [address] Patient Name: JOSELITO MILLER Patient : 1945 Patient Ordering Provider: ARELY PENNINGTON EXAM DATE: 07/23/2021 EXAM: XR ABDOMEN KUB CLINICAL INFORMATION: History of urinary tract stones. IMAGES PROVIDED: KUB AP radiographic images of the abdomen. COMPARISON: None. FINDINGS AND IMPRESSION: No stones or calcifications are seen in the expected location of the kidneys, ureters or urinary bladder. No other significant abnormality. Interpreted By: Tyrell Chapa MD Y PENNINGTON MD [address] [place] [address], [address], [facility] 07/29/2021 16:51:43 Problems No Known Problems Procedures Surgical History Date Name Laterality Status Provider Name and Address Organization Details Recorded Time 9 Cystoscopy completed Brianna Rust [facility] 12/10/2018 10:40:36 8 CYSTOSCOPY, WITH URETEROSCOPY, WITH LITHOTRIPSY, WITH INSERTION OF URETERAL STENT (SURG) completed Gen Michael [facility] 12/24/2017 07:58:05 2 Kidney Stones completed ARELY PENNINGTON MD [address] [place] [address], [phone], [facility] 05/09/2016 08:26:50 0 Heart Surgery completed Jessica Azul [facility] 11/30/2018 11:21:14 8 Other completed Brianna Rust [facility] 05/08/2016 13:38:43 6 Hernia Repair completed ARELY PENNINGTON MD [address] [place] [address], [address], [facility] 05/09/2016 08:26:59 6 Prostate Surgery completed ARELY PENNINGTON MD [address] [place] [address], [address], [facility] 11/11/2016 16:44:50 Other completed ARELY PENNINGTON MD [address] [place] [address], [address], [facility] 05/09/2016 08:27:20 Imaging Results None recorded. Procedure Notes None recorded. Medical Equipment None Reported. Allergies No known drug allergies Medications Name Sig Start Date Stop Date Status Note LastModified by Organization Details LastModified Time atorvastatin 20 mg tablet Take 1 tablet every day by oral route. active Not Available Not Available No t Available trazodone 50 mg tablet Take 1 tablet every day by oral route. active Not Available Not Available No t Available baclofen 10 mg tablet Take 1 tablet 3 times a day by oral route as needed for 5 days. 2021 active Not Available Not Available Not Avai lable hydrochlorot hiazide 12.5 mg capsule Take 1 capsule every day by oral route. active Not Available Not Available No t Available zolpidem 5 mg tablet Take 1 tablet every day by oral route. 10/28 completed Not Available Not Available Not Available meloxicam 11/24 completed Not Available Not Available Not Available Aspir-81 active Not Available Not Avai lable Not Available cholecalcife rol (vitamin D3) 1000 IU active Not Available Not Available Not Available atenolol 6.5mg active Not Available Not Avai lable Not Available sildenafil 50 mg active Not Available Not Av ailable Not Available Vitals Date Recorded Body height Body mass index (BMI) Body weight Provider Name and Address Organization Details Last Updated DateTime 07/23/2021 180.34 cm 30.7 kg/m2 85415.32 g [facility] 07/23/2021 13:41:23 Date Recorded Body height Body mass index (BMI) Body weight Systolic And Diastolic Provider Name and Address Organization Details Last Updated DateTime 11/30/2018 180.34 cm 30.7 kg/m2 19425.32 g 122/76 mm[Hg] Jessica Azul [facility] 11/30/2018 11:20:43 Date Recorded Body height Body mass index (BMI) Body weight Body temperature Provider Name and Address Organization Details Last Updated DateTime 12/08/2019 180.34 cm 30.7 kg/m2 37010.32 g 97.3 [degF] Brianna [facility] 12/08/2019 09:13:39 Date Recorded Body height Body mass index (BMI) Body weight Systolic And Diastolic Provider Name and Address Organization Details Last Updated DateTime 12/10/2018 180.34 cm 30.7 kg/m2 19809.32 g 116/82 mm[Hg] Brianna Rust [facility] 12/10/2018 10:39:43 Date Recorded Body height Body mass index (BMI) Body weight Systolic And Diastolic Provider Name and Address Organization Details Last Updated DateTime 01/11/2019 180.34 cm 30.7 kg/m2 05402.32 g 140/79 mm[Hg] Molly Cassidy [facility] 01/11/2019 09:12:28 Social History Question Answer Notes LastModified by Organizat ion Details LastModified Time Tobacco Smoking Status Never Smoker Brianna Rust [facility] 05/08/2016 13:37:39 Marital Status Informatio n not available 05/08/2016 What Was The Date Of Your Most Recent Tobacco Screening? 02/26/2018 Information n ot available 03/29/2019 How Much Tobacco Do You Smoke? No Information not available 05/08/2016 Sex: Unknown Functional Status Question Answer Note LastModified by Organization D etails LastModified Time What is your level of alcohol consumption? None Information not available 05/08/2016 What is your occupation? Retired Information not available 05/08/2016 Mental Status None recorded. Family History Relationship Description Onset Age of this Age Resolved Age Notes LastModified by Organization Details LastModified Time Unspecified Relation Family history of malignant neoplasm hstrang Not available 2018 11:55:47 Medical History Condition Response Cancer Prostate Y Heart Attack (NM) Y False Teeth Y Kidney Stones Y Hypertension Y Past Encounters Encounter ID Performer Location Encounter Start Date Encounter Closed Date Diagnosis/Indication Diagnosis SNOMED-CT Code Diagnosis ICD10 Code Diagnosis IMO Codes Diagnosis Note [id number] ARELY PENNINGTON MD [address] [address] [place] [address] 05/08/2016 13:04:11 05/09/2016 08:39:56 Low back pain 400593604 M54.5 [id number] ARELY PENNINGTON MD UROLOGY [address] [place] [address] 11/11/2016 08:51:34 11/12/2016 08:50:46 History of calculus of kidney 342886056 Z87.442 History of malignant neoplasm of prostate 028862339 Z85.46 RELL now 11 years out [id number] ARELY PENNINGTON MD UROLOGY [facility] [address] [place] [address] 10/01/2017 10:25:58 10/01/2017 13:59:23 Kidney stone 77335927 N20.0 Ureteric stone 53070303 N20.1 [id number] ARELY PENNINGTON MD UROLOGY [facility] [address] [address] 11/03/2017 08:48:21 11/04/2017 08:40:21 Kidney stone 19809832 N20.0 Ureteric stone 86162447 N20.1 continue trial of passage for just a few more weeks. [id number] ARELY PENNINGTON MD UROLOGY [facility] [address] [place] [place] [id number] 11/24/2017 08:49:29 11/26/2017 09:04:47 Kidney stone 82648006 N20.0 Ureteric stone 57265464 N20.1 continue trial of passage for just a few more weeks. [id number] ARELY PENNINGTON MD UROLOGY [facility] [address] [place] [address] 12/08/2017 10:07:10 12/09/2017 13:50:16 Ureteric stone 79382610 N20.1 will now proceed with stone removal [id number] ARELY PENNINGTON MD UROLOGY [facility] [address] [place] [address] 12/15/2017 11:08:24 12/15/2017 14:37:56 Kidney stone 93595103 N20.0 now surgically resolved [id number] ARELY PENNINGTON MD UROLOGY [facility] [address] [place] [address] 01/15/2018 08:47:10 01/21/2018 10:03:48 Kidney stone 55380793 N20.0 now surgically resolved [id number] ARELY PENNINGTON MD UROLOGY [facility] [address] [place] [id number] 02/26/2018 08:40:02 02/27/2018 09:22:54 Kidney stone 07754082 N20.0 now surgically resolved. [id number] ARELY PENNINGTON MD UROLOGY [facility] [address] [place] [place] [id number] 10/28/2018 10:45:07 11/01/2018 13:19:17 Low back pain 459968472 M54.5 [id number] ARELY PENNINGTON MD UROLOGY [facility] [address] [place] [address] 11/30/2018 10:20:57 12/01/2018 12:28:12 Low back pain 248894749 M54.[address] scan of abd/pelvis [id number] ARELY PENNINGTON MD UROLOGY [facility] [address] [place] [address] 12/10/2018 10:09:46 12/14/2018 11:47:38 Kidney stone 49037466 N20.0 doing well post-op [id number] ARELY PENNINGTON MD UROLOGY [facility] [address] [place] [address] 01/11/2019 08:48:09 01/13/2019 17:57:27 Kidney stone 57596095 N20.0 doing well post-op [id number] ARELY PENNINGTON MD UROLOGY [facility] [address] [place] [address] 12/08/2019 08:52:46 12/08/2019 11:55:19 Kidney stone 92883786 N20.0 Primary ma lignant neoplasm of prostate 80081139 C61 Low back pain 328900106 M54.5 do not think it is urologic in etiology. [id number] ARELY PENNINGTON MD UROLOGY [facility] [address] [place] [address] 07/23/2021 12:41:28 07/23/2021 14:11:36 Primary malignant neoplasm of prostate 25949072 C61 Low back pain 754407150 M54.50 I think it is definitely musculskel etal Health Concerns Section Related Observation LastModified by Organization Detai ls LastModified Time None Recorded Concern Status LastModified by Organization Details LastModified Time None Recorded Advance Directives Directive None Recorded Payers Insurance Date Sequence Insurance Name Policy Number Policy Waller Covered Member ID Waller Member ID Guarantor Name 05/19/2016 2 UNSPECIFIED REMIT PAYOR Joselito Kaplan Angela 07/23/2021 1 [place] Joselito Kaplan Angela [id number] Joselito Kaplan Angela 07/29/2021 2 [place] [id number] Joselito Kaplan Angela [id number] Joselito Kaplan Angela 07/23/2021 2 [place] [id number] Joselito Rosaura Angela [id number] Joselito Kaplan Angela Notes Date Note Type Note Provider Name and Address Organization Details Recorded Time 11/30/2018 text/html 73 yo male returns after one month for f/u right flank pain, possible stone. The discomfort in his right flank has continued in the interim. It is not severe, but is persistent, and on several occasions it has increased in intensity. He has had no nausea or vomiting and no fever. He does admit to increased frequency (U0iraiw)and urgency. He has had no dysuria or gross hematuria. ARELY PENNINGTON MD [address] [place] [address], [phone], [facility] 11/30/2018 13:43:34 12/10/2018 text/html 73 yo male returns 2 days p/o Cystoscopy, Right Ureteroscopy, Right RPG and Right Stent Placement for stent removal. He continues to have mild right flank pain. He denies recent fever, chills, nausea or vomiting. He does have a longstanding h/o kidney stones. He brings in a 5-6 mm stone that he passed a few days pre-op. ARELY PENNINGTON MD [address] [place] [address], [phone], [facility] 12/10/2018 16:47:48 01/11/2019 text/html 73 y/o male here today for a 1 month f/u previously seen due to kidney stones. He is doing well today. He denies any stone activity since last visit. He denies dysuria or gross hematuria. Stone is 80% CaOxMonohydrate and 20% dihydrate. MD [place], [address], [facility] 01/13/2019 08:51:53 12/08/2019 text/html 74 yo male returns for a f/u visit previously seen due to h/o Kidney Stones. He c/o right flank pain that has been present for the last month but gradually becoming more intense and frequent. He denies recent gross hematuria, he denies recent fever, chills, nausea and vomiting. [place], [address], [facility] 12/09/2019 16:19:55 07/23/2021 text/html 76 yo male returns after a 14 month absence due to a possible kidney stone. He c/o right flank pain that has been present for the last 1 wk but gradually becoming worse. He has been going to a chiropractor due to a possible pulled muscle but feels this has only made his symptoms worse. He denies recent gross hematuria, no fever, chills, nausea or vomiting.He has pain when getting out of bed and with any movement. ARELY PENNINGTON MD [address] [place], [address], [facility] 07/26/2021 16:31:34
== END 2024-12-28 23:59 | disposition home or self-care (01) ==
LOC: RAD 09:33
PROVIDERS: PCP Nurse Practitioner Family; Visit Provider Internal Medicine Adolescent Medicine
DX: M54.6 Pain in thoracic spine (principal)
CPT/HCPCS: 72072